=== PATIENT | male | born 1985 | race Caucasian/White ===

== ENCOUNTER 2016-09-02 13:59 | Emergency (ER) | payer BC ==
[~2016-09-02] VITALS: Ht 177.8 cm; Wt 59.0 kg
[2016-09-02 14:30] VITALS: BP 121/68
--- NOTE | 2016-09-02 14:39 | PHYS DOC ---
Adult General Chief Complaint Chief Complaint: LACERATION/AVULSION HPI HPI Patient is a 31 year old presents emergency room with complaint of a laceration to his right hand that occurred within the past 30 minutes. Patient states he was opening up the retaining packaging for again consult. He states that he was attempted using knife to cut the retention straps when but slid forward and struck him in his right hand. Patient reports that he is left-hand dominant. He denies any additional injuries or concerns. Patient reports is not received a tetanus shot within the past 5 years. Review of Systems Review of Systems Constitutional: Denies fever or chills [] Eyes: Denies change in visual acuity, redness, or eye pain [] HENT: Denies nasal congestion or sore throat [] Respiratory: Denies cough or shortness of breath [] Cardiovascular: No additional information not addressed in HPI [] GI: Denies abdominal pain, nausea, vomiting, bloody stools or diarrhea [] : Denies dysuria or hematuria [] Musculoskeletal: Denies back pain or joint pain [] Integument: Denies rash or skin lesions [] Neurologic: Denies headache, focal weakness or sensory changes [] Endocrine: Denies polyuria or polydipsia [] Current Medications Current Medications Current Medications Medications (Trade) Dose Ordered Sig/Justyn Start Time Stop Time Status Last Admin Dose Admin Diphtheria/ Tetanus/Acell Pertussis (Boostrix) 0.5 ml ONCE ONCE 09/02/16 14:45 09/02/16 14:46 DC 09/02/16 14:52 0.5 ML Lidocaine/Sodium Bicarbonate (Buffered Lidocaine 1%) 20 ml 1X ONCE 09/02/16 14:45 09/02/16 14:46 DC 09/02/16 14:52 20 ML Allergies Allergies Allergies Coded Allergies Type Severity Reaction Last Updated Verified No Known Drug Allergies 09/02/16 No Physical Exam Physical Exam Constitutional: Well developed, well nourished, no acute distress, mild appearance. HENT: Normocephalic, atraumatic, bilateral external ears normal, oropharynx moist, no oral exudates, nose normal. [] Eyes: PERRLA, EOMI, conjunctiva normal, no discharge. [] Neck: Normal range of motion, no tenderness, supple, no stridor. [] Cardiovascular:Heart rate regular rhythm, no murmur [] Lungs & Thorax: Bilateral breath sounds clear to auscultation [] Abdomen: Bowel sounds normal, soft, no tenderness, no masses, no pulsatile masses. [] Skin: Warm, dry, no erythema, no rash. [] Back: No tenderness, no CVA tenderness. [] Extremities: Approximate 1.5 cm laceration to the palmar aspect of the base of the right index finger just proximal to the MCP J. This laceration does extend into the subcutaneous tissue. There is active bleeding that is controlled by direct pressure. Flexor and extensor mechanism at both the PIPJ and DIPJ's intact. Patient's fingers neurovascular intact with capillary refill less than 2 seconds. Neurologic: Alert and oriented X 3, normal motor function, normal sensory function, no focal deficits noted. [] Psychologic: Affect normal, judgement normal, mood normal. [] EKG EKG [] Radiology/Procedures Radiology/Procedures Procedure note: 1.5 cm laceration to the palmar surface of patient's right hand , just proximal to the MCPJ was anesthetized with buffered 1% lidocaine. Wound was cleansed with Betadine solution and rinsed with copious amounts of saline. Wound was explored for foreign bodies. Flexor tendons were not observed to be injured. No foreign bodies were found. Wound margins were approximated utilizing 4-0 nylon in a simple interrupted fashion of a singular closure for total of 3 stitches. A pressure dressing was applied over top of the laceration site and bandaged in place with Coban. Patient tolerated the procedure well. Course & Med Decision Making Course & Med Decision Making Pertinent Labs and Imaging studies reviewed. (See chart for details) [] Dragon Disclaimer Dragon Disclaimer This electronic medical record was generated, in whole or in part, using a voice recognition dictation system. Departure Departure Impression: Primary Impression: Laceration of left hand Disposition: 01 HOME, SELF-CARE Condition: IMPROVED Patient Instructions: Diphtheria Toxoid; Tetanus Toxoid Adsorbed, DT, Td, Laceration Care, Adult, [id number] Additional Instructions: 1. Take the medication as prescribed. 2. Keep this current dressing on until tomorrow morning. Change the dressing daily or if it becomes wet. Your okay to wash your hands shower. You can apply a thin code of antibiotic ointment over top of the wound daily. 3. Review the discharge instructions provided for self-care and reasons to return the emergency department. 4. Stitches need to be removed in 10 days. Use the pamphlet provided for assistance in finding a primary care doctor for wound check and suture removal. If you're unable to make this happen, then open the emergency room for wound check and suture removal. Scripts Hydrocodone/Apap 5-325 ([place] 5-325 Tablet)1 Each Tablet1 Tab PO PRN Q6HRS PRN PAIN #10 TAB Prov:RONNIE BERRY 09/02/16 RONNIE BERRY Sep 02, 2016 14:39
[2016-09-02] MEDS ORDERED: DIPHTH,PERTUSS(ACELL),TET TOX 0.5 ML DISP.SYRIN. VAX IM ONE (14:45)
[2016-09-02] MEDS ORDERED: LIDOCAINE 1% / SOD BICARB 8.4% 20 ML VIAL. IJ ONE (14:45)
[2016-09-02] MEDS ORDERED: HYDR-971 PO (15:24)
== END 2016-09-02 15:26 | disposition home or self-care (01) ==
LOC: ER 13:59
DX: S61.411A Laceration without foreign body of right hand, initial encounter (principal); W26.0XXA Contact with knife, initial encounter; Y93.89 Activity, other specified; Y92.89 Other specified places as the place of occurrence of the external cause; Y99.8 Other external cause status
CPT/HCPCS: 12001; 90471; 90715; 99283-25

== ENCOUNTER 2016-09-04 16:17 | Emergency (ER) | payer BC ==
[~2016-09-04] VITALS: Ht 180.3 cm; Wt 59.0 kg
[~2016-09-04 16:17] MED LIST: HYDR-971 PO
[2016-09-04 17:02] VITALS: BP 114/72
--- NOTE | 2016-09-04 17:41 | PHYS DOC ---
Past Medical History Past Medical History: Bipolar, Depression Additional Past Medical Histor: Autism, ADD Past Surgical History: No Surgical History Additional Information: nonsmoker Alcohol Use: Occasionally Additional Information: DRINKS ONCE OR TWICE A MONTH Drug Use: None Adult General Chief Complaint Chief Complaint: WOUND CHECK HPI HPI Patient is a 31 year old male who presents requesting a work note. He was seen here 2 days ago and had sutures placed in the right hand on the palm. 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 The agency is requesting a note stating whether he may return to work. They're concerned that the wound will reopen and cause food contamination with bleeding. Patient has not had any issues with the wound bleeding, bruising, or other complications since the sutures were placed 2 days ago. He requests a note to return to work on of this week in order to allow more time for healing to be sure that it will not reopen. He does not have a PCP. Review of Systems Review of Systems Constitutional: Denies fever or chills. [] Musculoskeletal: Denies back pain or joint pain. Reports mild right hand pain. Integument: Denies rash or skin lesions. Reports right hand laceration, healing. Neurologic: Denies focal weakness or sensory changes. [] Allergies Allergies Allergies Coded Allergies Type Severity Reaction Last Updated Verified No Known Drug Allergies 09/02/16 No Physical Exam Physical Exam Constitutional: Well developed, well nourished, no acute distress, non-toxic appearance. [] HENT: Normocephalic, atraumatic, oropharynx moist. [] Eyes: PERRLA, EOMI, conjunctiva normal, no discharge. [] Skin: Warm, dry, no erythema, no rash. There is a well-healing laceration on the palm of the right hand over the second MCP joint. There is no surrounding erythema or induration. There is no drainage from the wound. The sutures are securely in place. Extremities: Minimal right hand tenderness, ROM intact, no edema. 2+ radial and ulnar pulses. Less than 2 second capillary refill in the fingers. Light touch sensation intact in the fingers. Neurologic: Alert and oriented X 3, normal motor function, normal sensory function, no focal deficits noted. [] Psychologic: Affect normal, judgement normal, mood normal. [] Current Patient Data Vital Signs Vital Signs Date Time Temp Pulse Resp B/P Pulse Ox O2 Delivery O2 Flow Rate FiO2 09/04/16 17:02 98.1 82 18 99 Room Air 98.1 EKG EKG [] Radiology/Procedures Radiology/Procedures [] Course & Med Decision Making Course & Med Decision Making Pertinent Labs and Imaging studies reviewed. (See chart for details) [] Dragon Disclaimer Dragon Disclaimer This electronic medical record was generated, in whole or in part, using a voice recognition dictation system. Departure Departure Impression: Primary Impression: Encounter for wound re-check Disposition: 01 HOME, SELF-CARE Condition: STABLE Referrals: NO PCP (PCP) Patient Instructions: Wound Check Additional Instructions: Your wound appears to be healing well without signs of infection. Please continue with your wound care. Please keep the wound covered with a bandage and wear gloves when at work. Follow-up for suture removal as previously instructed. Return to the emergency department if you have any new or concerning symptoms. SEAN NASH Sep 04, 2016 17:41
== END 2016-09-04 17:45 | disposition home or self-care (01) ==
LOC: ER 16:17
DX: S61.411D Laceration without foreign body of right hand, subsequent encounter (principal); F84.0 Autistic disorder; F98.8 Other specified behavioral and emotional disorders with onset usually occurring in childhood and adolescence; F31.9 Bipolar disorder, unspecified; X58.XXXD Exposure to other specified factors, subsequent encounter; Y92.89 Other specified places as the place of occurrence of the external cause; Y99.8 Other external cause status
CPT/HCPCS: 99281

== ENCOUNTER 2018-12-14 21:25 | Emergency (ER) | payer BC ==
[~2018-12-14] VITALS: Ht 180.3 cm; Wt 68.0 kg
[~2018-12-14 21:25] MED LIST changes: +HYDR-3164 PO; -HYDR-971 PO
[2018-12-14 22:08] VITALS: BP 102/69
[2018-12-14] MEDS ORDERED: NEOMY/BACITR/POLYMYXIN OINT PACKET. TP ONE (23:00)
[2018-12-14] MEDS ORDERED: DIPHTH,PERTUSS(ACELL),TET TOX 0.5 ML DISP.SYRIN. VAX IM ONE (23:00)
[2018-12-14] MEDS ORDERED: LIDOCAINE 1% PF 2 ML VIAL. INJ ONE (23:30)
--- NOTE | 2018-12-14 23:57 | PHYS DOC ---
Past Medical History Past Medical History: Anxiety, Bipolar, Depression Additional Past Medical Histor: Autism, ADD (POLA ALVARADO APRN) Past Surgical History: No Surgical History Additional Past Surgical Histo: Oral surgery (POLA ALVARADO APRN) Alcohol Use: Occasionally Drug Use: None (POLA ALVARADO APRN) Adult General Chief Complaint Chief Complaint: LACERATION/AVULSION HPI HPI Patient is a 33 year old male accompanied by his , with complaints of a laceration to the top of his right hand. Patient states he was using a knife to open a beer bottle when he normally himself. He states that his last tetanus s hot was about a year ago. Patient denies any numbness, tingling, or decreased range of motion of the right hand. (POLA ALVARADO APRN) Review of Systems Review of Systems Constitutional: Denies fever or chills [] Musculoskeletal: Denies back pain or joint pain [] Integument: see history of present illness Neurologic: Denies headache, focal weakness or sensory changes [] (POLA ALVARADO APRN) Current Medications Current Medications Current Medications Medications (Trade) Dose Ordered Sig/Justyn Start Time Stop Time Status Last Admin Dose Admin Diphtheria/ Tetanus/Acell Pertussis (Boostrix) 0.5 ml ONCE ONCE 12/14/18 23:00 12/14/18 23:01 DC Lidocaine HCl (Xylocaine-Mpf 1% 2ml Vial) 6 ml 1X ONCE 12/14/18 23:30 12/14/18 23:31 DC 12/14/18 23:30 6 ML Neomycin/ Polymyxin/ Bacitracin (Triple Antibiotic Ointment) 1 pkt 1X ONCE 12/14/18 23:00 12/14/18 23:01 DC 12/14/18 23:00 1 PKT (NOLA STOREY MD) Allergies Allergies Allergies Coded Allergies Type Severity Reaction Last Updated Verified No Known Drug Allergies 09/02/16 No (NOLA STOREY MD) Physical Exam Physical Exam Constitutional: Well developed, well nourished, no acute distress, non-toxic appearance. [] HENT: Normocephalic, atraumatic, bilateral external ears normal, nose normal. [] Eyes: conjunctiva normal, no discharge. [] Neck: Normal range of motion,no stridor. [] Cardiovascular:Heart rate regular rhythm Lungs & Thorax: Respirations even and unlabored, no retractions, no respiratory distress Skin: Warm, dry, no erythema, no rash; 3 cm laceration noted to posterior surface of right hand no active bleeding. [] Extremities: No cyanosis, no clubbing, R hand ROM intact full extension and flexion of all fingers, no edema. [] Neurologic: Alert and oriented X 3, normal motor function, normal sensory function, no focal deficits noted. [] Psychologic: Affect normal, judgement normal, mood normal. [] (POLA ALVARADO APRN) Current Patient Data Vital Signs Vital Signs Date Time Temp Pulse Resp B/P (MAP) Pulse Ox O2 Delivery O2 Flow Rate FiO2 12/14/18 22:08 97.9 65 16 102/69 (80) 99 Room Air 97.9 (NOLA STOREY MD) EKG EKG [] (POLA ALVARADO APRN) Radiology/Procedures Radiology/Procedures Laceration Repair by me: Anesthesia: 1% lidocaine locally Location: right hand Tendon/Joint/Nerves: No injury Foreign body: None detected after copious irrigation and exploration Technique: 7 Simple Interrupted Sutures with 4-0 ethilon Complexity: No subcutaneous sutures/mucosal repair/edge excision Post Closure Length: 3 cm Patient's bleeding was easily controlled in the department and there is no indication of anemia. No evidence of compartment syndrome, neurologic injury, vascular injury, open joint, tendon laceration, or foreign body. Patient is appropriate for outpatient follow up. (POLA ALVARADO APRN) Course & Med Decision Making Course & Med Decision Making Pertinent Labs and Imaging studies reviewed. (See chart for details) [] (POLA ALVARADO APRN) Course & Med Decision Making Staff Physician Addendum: I was working in the ER during the course of this patient's visit. I was available for consultation as needed, but I was not directly involved in the care of this patient. (NOLA STOREY MD) Dragon Disclaimer Dragon Disclaimer This electronic medical record was generated, in whole or in part, using a voice recognition dictation system. (POLA ALVARADO APRN) Departure Departure Impression: Primary Impression: Laceration of right hand without complication, excluding fingers Disposition: 01 HOME, SELF-CARE Condition: STABLE Referrals: ERNESTINE REAGAN MD (PCP) Patient Instructions: Laceration Care, Adult, [id number] Additional Instructions: Keep area clean and dry. Return to the ER or follow up with your doctor in 10-14 days to have the sutures removed. Tylenol or ibuprofen as needed for pain. Problem Qualifiers Primary Impression: Laceration of right hand without complication, excluding fingers Encounter type: initial encounter Qualified Codes: S61.411A - Laceration without foreign body of right hand, initial encounter POLA ALVARADO APRN Dec 14, 2018 23:57 NOLA STOREY MD Dec 15, 2018 03:14
== END 2018-12-15 00:15 | disposition home or self-care (01) ==
LOC: ER 21:25
DX: S61.411A Laceration without foreign body of right hand, initial encounter (principal); F41.9 Anxiety disorder, unspecified; F31.9 Bipolar disorder, unspecified; W26.0XXA Contact with knife, initial encounter; Y93.89 Activity, other specified; Y92.89 Other specified places as the place of occurrence of the external cause; Y99.8 Other external cause status
CPT/HCPCS: 12002; 99283

== ENCOUNTER 2018-12-19 07:01 | Emergency (ER) | payer BC ==
[~2018-12-19] VITALS: Ht 177.8 cm; Wt 68.0 kg
[2018-12-19 07:09] VITALS: BP 110/70
[2018-12-19] MEDS ORDERED: CEPH-264 PO (07:32)
--- NOTE | 2018-12-19 07:32 | PHYS DOC ---
Past Medical History Past Medical History: Anxiety, Bipolar, Depression Additional Past Medical Histor: Autism, ADD Past Surgical History: Other Additional Past Surgical Histo: Oral surgery Alcohol Use: Occasionally Drug Use: None Adult General Chief Complaint Chief Complaint: WOUND CHECK HPI HPI Patient is a 33 year old male who presents with complaining of redness. Patient states he had suture placement in right hand on December 14 and for the last 2 days has increasing of itching and redness without discharge or pain. Patient denies fever and chills. Review of Systems Review of Systems Constitutional: Denies fever or chills [] Eyes: Denies change in visual acuity, redness, or eye pain [] HENT: Denies nasal congestion or sore throat [] Respiratory: Denies cough or shortness of breath [] Cardiovascular: No additional information not addressed in HPI [] GI: Denies abdominal pain, nausea, vomiting, bloody stools or diarrhea [] : Denies dysuria or hematuria [] Musculoskeletal: Denies back pain or joint pain [] Integument: Denies rash, reports skin erythema Neurologic: Denies headache, focal weakness or sensory changes [] Endocrine: Denies polyuria or polydipsia [] All other systems were reviewed and found to be within normal limits, except as documented in this note. Allergies Allergies Allergies Coded Allergies Type Severity Reaction Last Updated Verified No Known Drug Allergies 09/02/16 No Physical Exam Physical Exam Constitutional: Well developed, well nourished, no acute distress, non-toxic appearance. [] HENT: Normocephalic, atraumatic Eyes: PERRLA, EOMI, conjunctiva normal, no discharge. [] Neck: Normal range of motion, no tenderness, supple, no stridor. [] Cardiovascular:Heart rate regular rhythm, no murmur [] Lungs & Thorax: Bilateral breath sounds clear to auscultation [] [] Skin: Warm, dry, several stitches in dorsal right hand with mild erythema without discharge or edema or abscess or tenderness Extremities: No tenderness, no cyanosis, no clubbing, ROM intact, no edema. [] Neurologic: Alert and oriented X 3, normal motor function, normal sensory function, no focal deficits noted. [] Current Patient Data Vital Signs Vital Signs Date Time Temp Pulse Resp B/P (MAP) Pulse Ox O2 Delivery O2 Flow Rate FiO2 12/19/18 07:09 97.9 60 16 110/70 (83) 97 Room Air 97.9 EKG EKG [] Radiology/Procedures Radiology/Procedures [] Course & Med Decision Making Course & Med Decision Making I've spoken with the patient and/or caregivers. I've explained the patient's condition, diagnosis and treatment plan based on information available to me at this time. I've answered the patient's and/or caregivers questions and addressed any concerns. The patient and/or caregivers have a good understanding the patient's diagnosis, condition and treatment plan as can be expected at this point. Vital signs have been stabilized. The patient's condition is stable for discharge from the emergency department. The patient will pursue further outpatient evaluation with her primary care provider or other designated consulting physician as outlined in the discharge instructions. Patient and/or caregivers are agreeable to this plan of care and follow-up instructions have been explained in detail. The patient and/or caregivers have received these instructions in written format and expressed understanding of these discharge instructions. The patient and her caregivers are aware that if any significant change in condition or worsening of symptoms should prompt him to immediately return to this of the closest emergency d epartment. If an emergent department is not readily available I would encourage him to call 911. Dragon Disclaimer Dragon Disclaimer This electronic medical record was generated, in whole or in part, using a voice recognition dictation system. Departure Departure Impression: Primary Impression: Encounter for wound re-check Additional Impression: Wound infection Disposition: HOME, SELF-CARE (at 0730) Condition: STABLE Referrals: ERNESTINE REAGAN MD (PCP) Patient Instructions: Wound Infection Additional Instructions: Keep wound clean and dry Follow-up with your primary care physician in 3-5 days Return to ER if not getting better Take ibuprofen 800 mg every 8 hours Scripts Cephalexin (KEFLEX) 500 Mg Capsule 2 CAP PO Q12HR, #28 CAP Prov: RADHAMES JONES MD 12/19/18 Problem Qualifiers RADHAMES JONES MD Dec 19, 2018 07:32
== END 2018-12-19 07:37 | disposition home or self-care (01) ==
LOC: ER 07:01
DX: S61.411D Laceration without foreign body of right hand, subsequent encounter (principal); L08.9 Local infection of the skin and subcutaneous tissue, unspecified; F41.9 Anxiety disorder, unspecified; F31.9 Bipolar disorder, unspecified; X58.XXXD Exposure to other specified factors, subsequent encounter
CPT/HCPCS: 99283